=== PATIENT | male | born 1980 | race American Indian/Alaskan Native ===

== ENCOUNTER 2022-12-04 16:38 | Emergency (ER) | payer OTHER, MEDICAID ==
[2022-12-04 16:58] VITALS: BP 153/101
--- NOTE | 2022-12-04 17:24 | XRAY Report ---
PROCEDURE: Wrist 4 View RT INDICATIONS: Trauma TECHNIQUE: 4 views of the wrist were acquired. COMPARISON: None FINDINGS: Bones: No fractures or dislocations. No suspicious bony lesions. Scaphoid view: No scaphoid fractures are seen. Soft tissues: No suspicious soft tissue calcifications. IMPRESSION: No displaced fractures are seen on these plain films. If there is snuffbox tenderness (or other clinical concern for a fracture not seen on these images) p lease consider a dedicated CT study or a short-term follow-up plain film series, following splinting. Reviewed by: Aurelio Lopes MD on 12/04/2022 4:22 PM [place] Approved by: Aurelio Lopes MD on 12/04/2022 4:22 PM [facility] Station ID: [id number]
[2022-12-04] MEDS ORDERED: TETANUS/DIPHTHERIA/PERTUSSIS 0.5 ML SYRINGE IM ONE (17:47)
--- NOTE | 2022-12-04 17:50 | ED Physician Documentation ---
PD HPI UPPER EXT INJURY - Stated complaint Stated Complaint: WRIST PAIN - Chief complaint Chief Complaint: Trauma Ext - History obtained from History obtained from: Patient - Additonal information Additional information: Patient is a 42-year-old male presenting for evaluation of right wrist pain after an injury on Friday. He was at work and stripping some lines when he hit his arm against a metal bar. He did not hurt right away but has started to hurt over the past several days. It only hurts when he is doing certain movements.He has used an Pablo wrap which does help. He has used icy hot which also helps. He denies use of a blood thinner. He does have abrasions to the area and is unsure of his last tetanus. Review of Systems Constitutional: denies: Fever Cardiac: denies: Chest pain / pressure Respiratory: denies: Dyspnea GI: denies: Abdominal Pain Musculoskeletal: reports: Extremity pain Neurologic: denies: Headache PD PAST MEDICAL HISTORY - Allergies Allergies/Adverse Reactions: Allergies Allergy/AdvReac Type Severity Reaction Status Date / Time No Known Drug Allergies Allergy Verified 12/04/22 16:58 PD ED PE NORMAL - General General: Alert and oriented X 3, No acute distress, Well developed/nourished - HEENT HEENT: Atraumatic - Cardiac Cardiac: Strong equal pulses - Respiratory Respiratory: No respiratory distress - Extremities Extremities: No deformity, Normal ROM s pain, Other (No snuffbox tenderness) PD ED PE EXPANDED - Extremities KARENA UE/Hands Visual: 1 - tenderness 2 - abrasion Results - Vitals Vitals: Vital Signs - 24 hr 12/04/22 16:54 Temperature 37.5 C Heart Rate 63 Respiratory 16 Rate Blood Pressure 153/101 H O2 Saturation 95 Oxygen O2 Source Room air PD Medical Decision Making - ED course Complexity details: reviewed results, d/w patient ED course: Patient presenting for evaluation of wrist injury that occurred 5 days ago. He has full range of motion at all joints of the right extremity. There are no deformities. X-rays negative for fracture dislocation he has no snuffbox tenderness. Discussed continue with supportive care. He does have abrasions to the forearm. Did recommend updating his tetanus which she is agreeable to. Departure - Departure Disposition: 01 Home, Self Care Clinical Impression: Right wrist injury Qualifiers: Encounter type: initial encounter Qualified Code(s): S69.91XA - Unspecified injury of right wrist, hand and finger(s), initial encounter Contusion, wrist Qualifiers: Encounter type: initial encounter Laterality: right Qualified Code(s): S60.211A - Contusion of right wrist, initial encounter Forearm abrasion Qualifiers: Encounter type: initial encounter Laterality: right Qualified Code(s): S50.811A - Abrasion of right forearm, initial encounter Condition: Stable Instructions: ED Sprain Wrist Comments: Your x-ray does not show a fracture/Broken bone. You likely have a bruise to the soft tissue of the wrist. Please continue with using an Pablo wrap or splint for additional support. I would continue with ice, elevation, anti- inflammatories and would expect this to get better over the next several days. Any worsening symptoms please consider return to the emergency department. You were given a tetanus booster today.
== END 2022-12-04 18:17 | disposition home or self-care (01) ==
LOC: ED 16:38
DX: S69.91XA Unspecified injury of right wrist, hand and finger(s), initial encounter (principal); S60.211A Contusion of right wrist, initial encounter; S50.811A Abrasion of right forearm, initial encounter; W22.8XXA Striking against or struck by other objects, initial encounter; Y99.0 Civilian activity done for income or pay; Z23 Encounter for immunization; Z71.85 Encounter for immunization safety counseling
CPT/HCPCS: 90471; 99283

== ENCOUNTER 2024-05-03 06:19 | Emergency (ER) | payer BC ==
--- NOTE | 2024-05-03 07:33 | ED Physician Documentation ---
History of Present Illness - Stated complaint Stated Complaint: RT LEG PX - Chief complaint Chief Complaint: Ext Problem - History obtained from History obtained from: Patient - Additonal information Additional information: HPI from patient. Patient c/o gradual onset but steadily progressive RLE swelling. Denies injury. The swelling was initially limited to the right ankle but has worsened and sprea d to right foot and up to right mid-lower leg. The swelling is associated with erythema of the mid/distal lower leg, predominantly posterior aspect. He denies fever. He says he has had similar symptoms in the past but of the LLE, diagnosed with cellulitis and resolved with course of PO antibiotics. Patient recently [place] from [id number]; unclear if symptoms preceded, coincided, or were subsequent to this relatively long drive (patient was passenger, not driving). Review of Systems Constitutional: denies: Fever Cardiac: denies: Chest pain / pressure Respiratory: denies: Dyspnea, Hemoptysis PD PAST MEDICAL HISTORY - Past Medical History Past Medical History: No - Past Surgical History Past Surgical History: Yes Ortho: Other - Present Medications Home Medications: Ambulatory Orders Medication Instructions Recorded Confirmed Doxycycline [Vibramycin] 100 mg PO BID #14 tablet 05/03/24 - Allergies Allergies/Adverse Reactions: Allergies Allergy/AdvReac Type Severity Reaction Status Date / Time No Known Drug Allergies Allergy Verified 05/03/24 06:38 - Social History Does the pt smoke?: No Smoking Status: Never smoker Does the pt drink ETOH?: No Does the pt have substance abuse?: No - Immunizations Immunizations are current?: Yes PD ED PE NORMAL - Vitals Vital signs reviewed: Yes - General General: Alert and oriented X 3, No acute distress, Well developed/nourished - Respiratory Respiratory: No respiratory distress, Clear bilaterally PD ED PE EXPANDED - Extremities KARENA LE visual: 1 - swelling (circumferential swelling although predominantly posterior aspect with faintly-marginated erythema, hot to touch. no fluctuance. Stronge DP and PT pulses) Results - Vitals Vitals: Oxygen O2 Source Room air - Rads (name of study) RLE US Relevant Findings:: Prelim report reviewed, See rad report PD Medical Decision Making - ED course Complexity details: reviewed results, re-evaluated patient, considered differential, d/w patient ED course: Differential diagnosis includes DVT, cellulitis. US of RLE negative for DVT. Results d/w patient. He is given 100mg PO doxycycline in ED, one-week rx for same. Return precautions reviewed, advised to seek follow up in outpatient setting if not improving within 3-4 days of the antibiotic, if not resolved after completion of the abx, and return to ED if worse or new/concerning signs/symptoms (including fever, chest pain, dyspnea, hemoptysis). Departure - Departure Disposition: Home, Self Care Clinical Impression: Cellulitis Qualifiers: Site of cellulitis: extremity Site of cellulitis of extremity: lower extremity Laterality: right Qualified Code(s): L03.115 - Cellulitis of right lower limb Condition: Good Instructions: ED Infec Skin Cellulitis Prescriptions: Doxycycline [Vibramycin] 100 mg PO BID #14 tablet Comments: The ultrasound performed this morning does not show any evidence of a blood clot in your leg. At this point, the most likely explanation for your symptoms is a bacterial skin infection called cellulitis. You were given the first dose of an antibiotic (doxycycline) in the emergency department, and I have electronically submitted a prescription for a 1-week course of this antibiotic to the [facility] pharmacy in [place]. Forms: PCP List Discharge Date/Time: 05/03/24 07:37
[2024-05-03] MEDS: DOXYCYCLINE 100 MG TABLET PO STA (07:34)
--- NOTE | 2024-05-03 07:38 | Ultrasound Report ---
PROCEDURE: Duplex Ext Veins Right INDICATIONS: atraumatic RLE swelling TECHNIQUE: Real-time imaging, as well as color and pulse Doppler interrogation, were performed of the lower extr emity deep veins from the inguinal ligament to the popliteal fossa. Attempted visualization of the ca lf veins was performed. COMPARISON: None. FINDINGS: The deep veins are normally compressible, and free of intraluminal thrombus. Color and pu lse Doppler demonstrate normal phasic intraluminal flow. There is normal augmentation response to di stal compression maneuver. The calf veins were not well interrogated secondary to overlying soft tissue edema. No focal fluid co llections noted over the area of erythema involving the mid/medial right calf. IMPRESSION: No deep venous thrombosis of the visualized lower extremity. Reviewed by: Charles Ron MD on 05/03/2024 7:36 AM PDT Approved by: Charles Ron MD on 05/03/2024 7:36 AM PDT Station ID: [id number]
[2024-05-03 07:48] VITALS: BP 149/79; O2SAT 98
== END 2024-05-03 07:37 | disposition home or self-care (01) ==
LOC: ED 06:19
DX: L03.115 Cellulitis of right lower limb (principal)
CPT/HCPCS: 93971; 99283; 99284; A9270